=== PATIENT | male | born 1970 | race Caucasian/White ===

== ENCOUNTER 2016-09-29 11:15 | Outpatient (RCR) | payer OTHER ==
[~2016-09-29 11:15] MED LIST: EXCEDRIN1 TAB PO; MAG-OX 400400 MG/TAB PO; NEUPRO2 MG/24 HR; NEURONTIN100 MG/CAP PO; NEURONTIN300 MG/CAP PO; NORCO 325 MG-51 TAB PO; PROVIGIL200 MG PO
== END 2016-10-05 | disposition still patient (30) ==
LOC: WSPT
DX: G90.522 Complex regional pain syndrome I of left lower limb (principal)

== ENCOUNTER 2017-03-29 15:45 | Outpatient (RCR) | payer OTHER | END 2017-04-04 07:57 | disposition home or self-care (01) | LOC: WSPT 15:45 | DX: Z47.89 Encounter for other orthopedic aftercare (principal); Z98.1 Arthrodesis status ==

== ENCOUNTER 2017-11-23 12:51 | Inpatient (IN) | payer OTHER ==
[~2017-11-23] VITALS: Ht 185.4 cm; Wt 118.1 kg
[2017-11-23] MEDS ORDERED: LOTRIMIN1% TP (12:58)
[2017-11-23 15:22] LABS: BASO # 0.1 (0.0-0.2); BASO % 0.4 % (0.0-2.0); EOS # 0.1 (0.0-0.7); EOS % 0.7 % (0-4.0); GRAN # 11.7 (1.4-6.5); HEMOGLOBIN 15.4 g/dl (13.5-18.0); LYMPH # 1.9 (1.2-3.4); LYMPH % 12.7 % (20.0-51.0); MEAN CELL VOLUME 86 fl (80.0-100.0); MEAN CORPUSCULAR HEMOGLOBIN 29 pg (27.0-31.0); MEAN CORPUSCULAR HGB CONC 34 g/dl (33.0-37.0); MEAN PLATELET VOLUME 9.5 fl (7.4-10.4); MONO % 6.9 % (1.7-9.3); PLATELET COUNT 326 K/mm3 (130-400); RED BLOOD COUNT 5.23 M/mm3 (4.20-5.60); REDCELL DISTRIBUTION WIDTH-CV 12.3 % (11.5-14.5)
[2017-11-23 15:36] LABS: ALBUMIN 4.4 gm/dL (3.5-5.0); BILIRUBIN,TOTAL 1.3 mg/dL (0.0-1.0); C-REACTIVE PROTEIN 8.1 mg/dL (0.0-0.9); CALCIUM 8.9 mg/dL (8.4-10.2); CREATININE, serum 1.03 mg/dL (0.66-1.25); POTASSIUM 3.9 mmol/L (3.4-5.0)
[2017-11-23 18:34] VITALS: BP 136/68; PULSE 90; TEMP 99.9
[2017-11-23 21:26] VITALS: BP 137/65; PULSE 92; TEMP 100.2
[2017-11-23 23:52] VITALS: BP 113/70; PULSE 70; TEMP 99.1
[2017-11-24] VITALS (7 sets, daily range): BP systolic 115–141; BP diastolic 53–72; PULSE 65–107; TEMP 97.5–103
[2017-11-24 07:22] LABS: BASO # 0.1 (0.0-0.2); BASO % 0.7 % (0.0-2.0); EOS # 0.3 (0.0-0.7); EOS % 2.6 % (0-4.0); GRAN # 6.2 (1.4-6.5); HEMATOCRIT 42.1 % (42.0-52.0); HEMOGLOBIN 13.7 g/dl (13.5-18.0); LYMPH # 2.6 (1.2-3.4); LYMPH % 26.3 % (20.0-51.0); MEAN CELL VOLUME 89 fl (80.0-100.0); MEAN CORPUSCULAR HEMOGLOBIN 29 pg (27.0-31.0); MEAN CORPUSCULAR HGB CONC 33 g/dl (33.0-37.0); MONO # 0.8 (0.1-0.6); MONO % 8.1 % (1.7-9.3); PLATELET COUNT 327 K/mm3 (130-400); RED BLOOD COUNT 4.74 M/mm3 (4.20-5.60); REDCELL DISTRIBUTION WIDTH-CV 12.5 % (11.5-14.5)
[2017-11-24 07:39] LABS: ALBUMIN 3.6 gm/dL (3.5-5.0); CALCIUM 8.3 mg/dL (8.4-10.2); CREATININE, serum 1.03 mg/dL (0.66-1.25); POTASSIUM 3.8 mmol/L (3.4-5.0); TOTAL PROTEIN 6.7 gm/dL (6.4-8.2)
[2017-11-24 16:52] LABS: BASO # 0.1 (0.0-0.2); BASO % 0.4 % (0.0-2.0); EOS # 0.1 (0.0-0.7); EOS % 0.4 % (0-4.0); GRAN # 11.3 (1.4-6.5); GRAN % 83.6 % (42.2-75.2); HEMATOCRIT 42.2 % (42.0-52.0); HEMOGLOBIN 14.3 g/dl (13.5-18.0); LYMPH # 1.1 (1.2-3.4); LYMPH % 7.9 % (20.0-51.0); MEAN CELL VOLUME 86 fl (80.0-100.0); MEAN CORPUSCULAR HEMOGLOBIN 29 pg (27.0-31.0); MEAN CORPUSCULAR HGB CONC 34 g/dl (33.0-37.0); MEAN PLATELET VOLUME 9.5 fl (7.4-10.4); MONO % 7.3 % (1.7-9.3); PLATELET COUNT 310 K/mm3 (130-400); RED BLOOD COUNT 4.91 M/mm3 (4.20-5.60); REDCELL DISTRIBUTION WIDTH-CV 12.3 % (11.5-14.5)
[2017-11-24 17:03] LABS: CALCIUM 8.5 mg/dL (8.4-10.2); POTASSIUM 3.9 mmol/L (3.4-5.0)
[2017-11-25] VITALS (7 sets, daily range): BP systolic 107–142; BP diastolic 59–78; PULSE 76–93; TEMP 98.1–100.9
[2017-11-25 09:23] LABS: BASO # 0.1 (0.0-0.2); BASO % 0.4 % (0.0-2.0); EOS # 0.2 (0.0-0.7); EOS % 1.1 % (0-4.0); GRAN # 12.1 (1.4-6.5); GRAN % 76.6 % (42.2-75.2); HEMATOCRIT 39.9 % (42.0-52.0); HEMOGLOBIN 13.4 g/dl (13.5-18.0); LYMPH # 2.1 (1.2-3.4); LYMPH % 13.2 % (20.0-51.0); MEAN CELL VOLUME 88 fl (80.0-100.0); MEAN CORPUSCULAR HEMOGLOBIN 30 pg (27.0-31.0); MEAN CORPUSCULAR HGB CONC 34 g/dl (33.0-37.0); MEAN PLATELET VOLUME 9.7 fl (7.4-10.4); MONO # 1.3 (0.1-0.6); MONO % 8.4 % (1.7-9.3); PLATELET COUNT 327 K/mm3 (130-400); RED BLOOD COUNT 4.55 M/mm3 (4.20-5.60); REDCELL DISTRIBUTION WIDTH-CV 12.4 % (11.5-14.5)
[2017-11-25 09:38] LABS: ALBUMIN 3.3 gm/dL (3.5-5.0); CALCIUM 8.1 mg/dL (8.4-10.2); CREATININE, serum 1.08 mg/dL (0.66-1.25); PHOSPHOROUS 3.2 mg/dL (2.5-4.5); POTASSIUM 3.3 mmol/L (3.4-5.0)
[2017-11-25 09:52] LABS: C-REACTIVE PROTEIN 15.1 mg/dL (0.0-0.9)
[2017-11-26] VITALS (13 sets, daily range): BP systolic 113–131; BP diastolic 61–79; PULSE 58–76; TEMP 98.1–99.6
[2017-11-26 07:44] LABS: BASO # 0.1 (0.0-0.2); BASO % 0.6 % (0.0-2.0); EOS # 0.4 (0.0-0.7); EOS % 2.9 % (0-4.0); GRAN # 8.1 (1.4-6.5); GRAN % 65.1 % (42.2-75.2); HEMATOCRIT 38.5 % (42.0-52.0); HEMOGLOBIN 12.7 g/dl (13.5-18.0); MEAN CELL VOLUME 89 fl (80.0-100.0); MEAN CORPUSCULAR HEMOGLOBIN 29 pg (27.0-31.0); MEAN CORPUSCULAR HGB CONC 33 g/dl (33.0-37.0); MEAN PLATELET VOLUME 9.8 fl (7.4-10.4); MONO # 0.9 (0.1-0.6); MONO % 7.1 % (1.7-9.3); PLATELET COUNT 329 K/mm3 (130-400); RED BLOOD COUNT 4.32 M/mm3 (4.20-5.60); REDCELL DISTRIBUTION WIDTH-CV 12.5 % (11.5-14.5)
[2017-11-26 07:55] LABS: CALCIUM 8.2 mg/dL (8.4-10.2); CREATININE, serum 1.09 mg/dL (0.66-1.25); POTASSIUM 3.4 mmol/L (3.4-5.0)
[2017-11-27 01:48] VITALS: BP 93/51; PULSE 56; TEMP 97.3
[2017-11-27 04:47] VITALS: PULSE 58; TEMP 97.4
[2017-11-27 07:25] LABS: BASO % 0.3 % (0.0-2.0); GRAN # 9.3 (1.4-6.5); GRAN % 81.8 % (42.2-75.2); HEMATOCRIT 39.1 % (42.0-52.0); HEMOGLOBIN 12.8 g/dl (13.5-18.0); LYMPH # 1.4 (1.2-3.4); LYMPH % 12.5 % (20.0-51.0); MEAN CELL VOLUME 89 fl (80.0-100.0); MEAN CORPUSCULAR HEMOGLOBIN 29 pg (27.0-31.0); MEAN CORPUSCULAR HGB CONC 33 g/dl (33.0-37.0); MEAN PLATELET VOLUME 9.9 fl (7.4-10.4); MONO # 0.6 (0.1-0.6); PLATELET COUNT 373 K/mm3 (130-400); RED BLOOD COUNT 4.42 M/mm3 (4.20-5.60); REDCELL DISTRIBUTION WIDTH-CV 12.1 % (11.5-14.5)
[2017-11-27 07:30] LABS: CALCIUM 8.6 mg/dL (8.4-10.2); CREATININE, serum 0.94 mg/dL (0.66-1.25); POTASSIUM 4.1 mmol/L (3.4-5.0)
[2017-11-27 09:29] VITALS: BP 127/66; PULSE 71; TEMP 79.8
[2017-11-27 13:15] VITALS: BP 142/64; PULSE 72; TEMP 98.6
[2017-11-27] MEDS ORDERED: ROXICODONE 55 MG/TAB PO (13:15)
[2017-11-27] MEDS ORDERED: TYLENOL 500MG500 MG PO (13:15)
[2017-11-27] MEDS ORDERED: FLAGYL500 MG PO (13:15)
[2017-11-27] MEDS ORDERED: CIPRO 500MG TA500 MG PO (13:15)
[2017-11-27 17:02] VITALS: BP 125/65; PULSE 68; TEMP 98.1
[2017-11-27 19:54] VITALS: BP 134/58; PULSE 74; TEMP 98.5
[2017-11-28] VITALS (7 sets, daily range): BP systolic 92–135; BP diastolic 5–80; PULSE 60–108; TEMP 98–98.6
[2017-11-28 11:14] LABS: BASO # 0.1 (0.0-0.2); BASO % 0.8 % (0.0-2.0); EOS # 0.3 (0.0-0.7); EOS % 2.9 % (0-4.0); GRAN # 5.2 (1.4-6.5); GRAN % 58.4 % (42.2-75.2); HEMATOCRIT 37.9 % (42.0-52.0); HEMOGLOBIN 12.6 g/dl (13.5-18.0); LYMPH # 2.8 (1.2-3.4); LYMPH % 31.1 % (20.0-51.0); MEAN CELL VOLUME 88 fl (80.0-100.0); MEAN CORPUSCULAR HEMOGLOBIN 29 pg (27.0-31.0); MEAN CORPUSCULAR HGB CONC 33 g/dl (33.0-37.0); MEAN PLATELET VOLUME 9.4 fl (7.4-10.4); MONO # 0.6 (0.1-0.6); MONO % 6.4 % (1.7-9.3); PLATELET COUNT 374 K/mm3 (130-400); RED BLOOD COUNT 4.31 M/mm3 (4.20-5.60); REDCELL DISTRIBUTION WIDTH-CV 12.4 % (11.5-14.5)
[2017-11-29 00:43] VITALS: BP 123/77; PULSE 69; TEMP 98.6
[2017-11-29 04:53] VITALS: BP 114/62; PULSE 56; TEMP 98.3
[2017-11-29 09:22] VITALS: BP 143/70; PULSE 58; TEMP 98.3
[2017-11-29 14:09] VITALS: BP 139/74; PULSE 90; TEMP 98.3
== END 2017-11-29 17:25 | disposition home or self-care (01) | DRG 394 ==
LOC: COL.ER 12:51 → SURG 17:16
PROVIDERS: Emergency Medicine; Surgery
PROC: 0J9B30Z Drainage of Perineum Subcutaneous Tissue and Fascia with Drainage Device, Percutaneous Approach (ICD-10-PCS; 2017-11-26)
PROC: 0JD73ZZ Extraction of Back Subcutaneous Tissue and Fascia, Percutaneous Approach (ICD-10-PCS; principal; 2017-11-26 16:30)
DX: K61.2 Anorectal abscess (principal); G90.522 Complex regional pain syndrome I of left lower limb; B96.20 Unspecified Escherichia coli [E. coli] as the cause of diseases classified elsewhere; J45.909 Unspecified asthma, uncomplicated
CPT/HCPCS: G0378; J1100; J1170; J1885; J2405; J2543; J2704; J2765; J3010; J7030; J7120; Q9967

== ENCOUNTER 2017-12-13 05:39 | Day surgery (SDC) | payer OTHER ==
[~2017-12-13] VITALS: Ht 185.4 cm; Wt 112.8 kg
[2017-12-13] VITALS (9 sets, daily range): BP systolic 105–117; BP diastolic 61–76; PULSE 57–82; TEMP 97.5–98
[~2017-12-13 05:39] MED LIST changes: +CIPRO 500MG TA500 MG PO; +FLAGYL500 MG PO; +LOTRIMIN1% TP; +ROXICODONE 55 MG/TAB PO; +TYLENOL 500MG500 MG PO
[2017-12-13] MEDS ORDERED: PERCOCET 325 MG1 TA2 PO (08:31)
[2017-12-13] MEDS ORDERED: COLACE 100100 MG/CAP PO (08:32)
[2017-12-13] MEDS ORDERED: DOS PO (08:33)
[2017-12-13] MEDS ORDERED: KONSYL ORA PO (08:33)
== END 2017-12-13 11:50 | disposition home or self-care (01) ==
LOC: SDCO 05:39
DX: K60.5 Anorectal fistula (principal); K64.4 Residual hemorrhoidal skin tags; G43.109 Migraine with aura, not intractable, without status migrainosus; G47.33 Obstructive sleep apnea (adult) (pediatric); G90.522 Complex regional pain syndrome I of left lower limb; J45.909 Unspecified asthma, uncomplicated; Z98.52 Vasectomy status; Z88.8 Allergy status to other drugs, medicaments and biological substances
CPT/HCPCS: J0690; J0694; J1100; J1885; J2405; J2704; J3010; J7120